=== PATIENT | female | born 1980 | race Two or more races ===

== ENCOUNTER 2019-10-12 06:28 | Emergency (ER) | payer BC ==
[2019-10-12] MEDS ORDERED: Ondansetron 4 MG/2 ML SDV IVPUSH ONE (07:01)
[2019-10-12] MEDS ORDERED: Sodium Chloride 0.9% 1,000 ML IV ONE ×2 (07:02→07:16)
[2019-10-12 07:08] LABS: BLOOD UREA NITROGEN,BUN 4 mg/dL (7.0-18.0); CARBON DIOXIDE,CO2 30.2 mmol/L (21.0-32.0); CHLORIDE,CL 102 mmol/L (98-107); GLUCOSE RANDOM 112 mg/dL (74-106); LIPASE 315 U/L (73-393); POTASSIUM,K 3.2 mmol/L (3.5-5.1); SODIUM,NA 144 mmol/L (136-145)
[2019-10-12] MEDS ORDERED: Pantoprazole 40 MG in Sodium Chloride 0.9% 20 ML IVPUSH ONE (07:17)
--- NOTE | 2019-10-12 07:30 | EDM.PDOC ---
ED HPI GENERAL MEDICAL PROBLEM - General Chief Complaint: Gastrointestinal Problem Stated Complaint: ABDOMINAL PAIN AN VOMITING BLOOD Time Seen by Provider: 10/12/19 07:20 Source of Information: Reports: Patient History Limitations: Reports: No Limitations - History of Present Illness INITIAL COMMENTS - FREE TEXT/NARRATIVE: This 39 year old female is admitted to the ED with a chief complaint of upper abdominal pain that she has been having over the past two months but became worse earlier this morning. She states that she threw up blood times two but not since she has been in the ED. She states that last night she had two glasses of white wine and two shots of Vodka. She denies any bloody or tarry stools. She denies any other symptoms including chest pain or SOB. She states that she had a similar episode one year ago after drinking alcohol. She states that she was told that she has elevated liver enzymes. Onset: Gradual Duration: Constant (to intermittent) Location: Reports: Abdomen (upper abdomen mainly on the right) Quality: Reports: Dull, Sharp Severity: Moderate Improves with: Reports: Immobilization Worsens with: Reports: None abdomen Pain Score (Numeric/FACES): 5 - Related Data Allergies Allergy/AdvReac Type Severity Reaction Status Date / Time No Known Allergies Allergy Verified 10/12/19 06:32 Home Meds: Home Meds Melatonin 1 mg PO BEDTIME 10/12/19 [History] Ondansetron HCl [Zofran] 4 mg PO TID 4 Days #12 tablet 10/12/19 [Rx] Pantoprazole Sodium [Protonix] 40 mg PO DAILY 30 Days #30 tablet. 10/12/19 [Rx ] Past Medical History HEENT History: Reports: None Cardiovascular History: Reports: None Respiratory History: Reports: None Gastrointestinal History: Reports: None Genitourinary History: Reports: None PROGRAM COORDINATOR History: Reports: None Musculoskeletal History: Reports: None Neurological History: Reports: None Psychiatric History: Reports: None Endocrine/Metabolic History: Reports: None Hematologic History: Reports: None Oncologic (Cancer) History: Reports: None Dermatologic History: Reports: None - Infectious Disease History Infectious Disease History: Reports: Chicken Pox - Past Surgical History Head Surgeries/Procedures: Reports: None Social & Family History - Family History Family Medical History: Noncontributory - Tobacco Use Smoking Status *Q: Never Smoker - Recreational Drug Use Recreational Drug Use: No ED ROS GENERAL - Review of Systems Review Of Systems: See Below Constitutional: Reports: No Symptoms HEENT: Reports: No Symptoms Respiratory: Reports: No Symptoms Cardiovascular: Reports: No Symptoms Endocrine: Reports: No Symptoms GI/Abdominal: Reports: Abdominal Pain, Hematochezia : Reports: No Symptoms Musculoskeletal: Reports: No Symptoms Skin: Reports: No Symptoms ED EXAM, GI/ABD - Physical Exam Exam: See Below Exam Limited By: No Limitations General Appearance: Alert, WD/WN, No Apparent Distress Ears: Normal External Exam, Normal Canal, Hearing Grossly Normal, Normal TMs Nose: Normal Inspection, Normal Mucosa, No Blood Throat/Mouth: Normal Inspection, Normal Lips, Normal Teeth, Normal Gums, Normal Oropharynx, Normal Voice, No Airway Compromise Head: Atraumatic, Normocephalic Neck: Normal Inspection, Supple, Non-Tender, Full Range of Motion Respiratory/Chest: No Respiratory Distress, Lungs Clear, Normal Breath Sounds, No Accessory Muscle Use, Chest Non-Tender Cardiovascular: Normal Peripheral Pulses, Regular Rate, Rhythm, No Edema, No Gallop, No JVD, No Murmur, No Rub GI/Abdominal Exam: Normal Bowel Sounds, Soft, No Distention, No Abnormal Bruit, No Mass, Tender (upper abdomen right greater than the left). No: Guarding, Rebound (Female) Exam: Deferred Rectal (Female) Exam: Deferred Back Exam: Normal Inspection Extremities: Normal Inspection, Normal Range of Motion, Normal Capillary Refill. No: Mauricio's Sign Neurological: Alert, Oriented, CN II-XII Intact, Normal Cognition, Normal Gait, Normal Reflexes, No Motor/Sensory Deficits Psychiatric: Normal Affect, Normal Mood Skin Exam: Warm, Dry, Intact, Normal Color, No Rash Lymphatic: No Adenopathy Course - Vital Signs Text/Narrative:: I discussed with the patient all of her diagnostic test and CT of the abdomen and pelvis. She has a fatty liver and elevated liver enzymes for which she is aware. She will be discharged. She agrees with the discharge plan. Last Recorded V/S: Last Vital Signs Temp 96.6 F L 10/12/19 06:33 Pulse 106 H 10/12/19 07:44 Resp 18 10/12/19 07:44 BP 139/100 H 10/12/19 07:44 Pulse Ox 97 10/12/19 07:44 - Orders/Labs/Meds Orders: Active Orders 24 hr Category Date Time Status EKG Documentation Completion [RC] STAT Care 10/12/19 06:44 Active Chest 1V Frontal [CR] Stat Exams 10/12/19 06:44 Taken Labs: Laboratory Tests 10/12/19 10/12/19 10/12/19 Range/Units 06:35 06:35 06:35 WBC 5.98 (4.0-11.0) K/uL RBC 4.41 (4.30-5.90) M/uL Hgb 15.3 (12.0-16.0) g/dL Hct 43.9 (36.0-46.0) % MCV 99.5 H (80.0-98.0) fL MCH 34.7 H (27.0-32.0) pg MCHC 34.9 (31.0-37.0) g/dL RDW Std Deviation 48.6 (28.0-62.0) fl RDW Coeff of Steve 13 (11.0-15.0) % Plt Count 193 (150-400) K/uL MPV 10.00 (7.40-12.00) fL Neut % (Auto) 30.8 L (48.0-80.0) % Lymph % (Auto) 52.5 H (16.0-40.0) % Cottle % (Auto) 13.7 (0.0-15.0) % Eos % (Auto) 2.3 (0.0-7.0) % Baso % (Auto) 0.7 (0.0-1.5) % Neut # (Auto) 1.8 (1.4-5.7) K/uL Lymph # (Auto) 3.1 H (0.6-2.4) K/uL Cottle # (Auto) 0.8 (0.0-0.8) K/uL Eos # (Auto) 0.1 (0.0-0.7) K/uL Baso # (Auto) 0.0 (0.0-0.1) K/uL Nucleated RBC % 0.0 /100WBC Nucleated RBCs # 0 K/uL INR 1.10 Sodium 144 (136-145) mmol/L Potassium 3.2 L (3.5-5.1) mmol/L Chloride 102 (98-107) mmol/L Carbon Dioxide 30.2 (21.0-32.0) mmol/L BUN 4 L (7.0-18.0) mg/dL Creatinine 0.9 (0.6-1.0) mg/dL Est Cr Clr Drug Dosing 71.03 mL/min Estimated GFR (MDRD) > 60.0 ml/min Glucose 112 H (74-106) mg/dL Calcium 9.2 (8.5-10.1) mg/dL Total Bilirubin 1.6 H (0.2-1.0) mg/dL AST 250 H (15-37) IU/L ALT 118 H (14-63) IU/L Alkaline Phosphatase 145 H (46-116) U/L Troponin I < 0.050 (0.000-0.056) ng/mL Total Protein 8.1 (6.4-8.2) g/dL Albumin 3.7 (3.4-5.0) g/dL Globulin 4.4 H (2.6-4.0) g/dL Albumin/Globulin Ratio 0.8 L (0.9-1.6) Lipase 315 (73-393) U/L Urine HCG, Qual (NEGATIVE) Blood Type Antibody Screen 10/12/19 10/12/19 Range/Units 07:18 08:17 WBC (4.0-11.0) K/uL RBC (4.30-5.90) M/uL Hgb (12.0-16.0) g/dL Hct (36.0-46.0) % MCV (80.0-98.0) fL MCH (27.0-32.0) pg MCHC (31.0-37.0) g/dL RDW Std Deviation (28.0-62.0) fl RDW Coeff of Steve (11.0-15.0) % Plt Count (150-400) K/uL MPV (7.40-12.00) fL Neut % (Auto) (48.0-80.0) % Lymph % (Auto) (16.0-40.0) % Cottle % (Auto) (0.0-15.0) % Eos % (Auto) (0.0-7.0) % Baso % (Auto) (0.0-1.5) % Neut # (Auto) (1.4-5.7) K/uL Lymph # (Auto) (0.6-2.4) K/uL Cottle # (Auto) (0.0-0.8) K/uL Eos # (Auto) (0.0-0.7) K/uL Baso # (Auto) (0.0-0.1) K/uL Nucleated RBC % /100WBC Nucleated RBCs # K/uL INR Sodium (136-145) mmol/L Potassium (3.5-5.1) mmol/L Chloride (98-107) mmol/L Carbon Dioxide (21.0-32.0) mmol/L BUN (7.0-18.0) mg/dL Creatinine (0.6-1.0) mg/dL Est Cr Clr Drug Dosing mL/min Estimated GFR (MDRD) ml/min Glucose (74-106) mg/dL Calcium (8.5-10.1) mg/dL Total Bilirubin (0.2-1.0) mg/dL AST (15-37) IU/L ALT (14-63) IU/L Alkaline Phosphatase (46-116) U/L Troponin I (0.000-0.056) ng/mL Total Protein (6.4-8.2) g/dL Albumin (3.4-5.0) g/dL Globulin (2.6-4.0) g/dL Albumin/Globulin Ratio (0.9-1.6) Lipase (73-393) U/L Urine HCG, Qual NEGATIVE (NEGATIVE) Blood Type A POSITIVE Antibody Screen NEGATIVE Meds: Medications Discontinued Medications Generic Name Dose Route Start Last Admin Trade Name Freq PRN Reason Stop Dose Admin Sodium Chloride 1,000 mls @ 1,000 mls/hr 10/12/19 07:02 10/12/19 07:41 Normal Saline IV 10/12/19 08:01 1,000 mls/hr .Bolus ONE Administration Pantoprazole Sodium 40 mg/ 20 mls @ 420 mls/hr 10/12/19 07:17 10/12/19 07:41 Sodium Chloride IVPUSH 10/12/19 07:19 420 mls/hr ONETIME ONE Administration Sodium Chloride 1,000 mls @ 1,000 mls/hr 10/12/19 07:16 10/12/19 07:42 Normal Saline IV 10/12/19 08:15 Not Given .Bolus ONE Ondansetron HCl 4 mg 10/12/19 07:01 10/12/19 07:41 Zofran IVPUSH 10/12/19 07:02 4 mg ONETIME ONE Administration Departure - Departure Time of Disposition: 11:32 Disposition: Home, Self-Care 01 Condition: Good Clinical Impression: Gastritis due to alcohol without hemorrhage Qualifiers: Chronicity: acute Qualified Code(s): K29.20 - Alcoholic gastritis without bleeding - Discharge Information *PRESCRIPTION DRUG MONITORING PROGRAM REVIEWED*: Yes *COPY OF PRESCRIPTION DRUG MONITORING REPORT IN PATIENT MAEHNDRA: Yes Instructions: Nausea and Vomiting, Adult, [id number] Referrals: PCP,None [Primary Care Provider] - Forms: ED Department Discharge Additional Instructions: Take all medications as directed. Follow up with your PCP in the next two to four days. Drink plenty of clear liquids for the next 24 hours and advance your diet as tolerated. Rest for the next 24 hours. Return to the ED if your condition gets worse or should you have any questions or concerns. The following information is given to patients seen in the emergency department who are being discharged to home. This information is to outline your options for follow-up care. We provide all patients seen in our emergency department with a follow-up referral. The need for follow-up, as well as the timing and circumstances, are variable depending upon the specifics of your emergency department visit. If you don't have a primary care physician on staff, we will provide you with a referral. We always advise you to contact your personal physician following an emergency department visit to inform them of the circumstance of the visit and for follow-up with them and/or the need for any referrals to a consulting specialist. The emergency department will also refer you to a specialist when appropriate. This referral assures that you have the opportunity for follow-up care with a specialist. All of these measure are taken in an effort to provide you with optimal care, which includes your follow-up. Under all circumstances we always encourage you to contact your private physician who remains a resource for coordinating your care. When calling for follow-up care, please make the office aware that this follow-up is from your recent emergency room visit. If for any reason you are refused follow-up, please contact the [facility] Emergency Department at and asked to speak to the emergency department charge nurse. Sepsis Event Note - Evaluation Sepsis Screening Result: No Definite Risk - Focused Exam Vital Signs: Vital Signs Temp Pulse Resp BP Pulse Ox 10/12/19 07:44 106 H 18 139/100 H 97 10/12/19 06:33 96.6 F L 135 H 20 141/106 H 98 Date Exam was Performed: 10/12/19 Time Exam was Performed: 11:29
--- NOTE | 2019-10-12 10:19 | CT ---
CT abdomen and pelvis Technique: Multiple axial sections were obtained from above the dome of the diaphragm inferiorly through the pubic symphysis. Intravenous and oral contrast not utilized. Comparison: No prior abdominal imaging. Findings: Partially visualized breast prosthesis are seen which appear symmetric between right and left sides. Visualized lung bases show nothing acute. Severe fatty infiltration is seen throughout the liver. Liver is also generous in size. Liver shows no other focal abnormality. Gallbladder contains no calcified gallstones. Spleen appears within normal limits. Adrenal glands show no nodule. Pancreas shows no discrete abnormality. Kidneys show no hydronephrosis or abnormal calcifications. No ureteral dilatation or ureteral stone is seen.. Aorta shows no aneurysm. No retroperitoneal adenopathy or mesenteric abnormalities are seen. Appendix is seen which is normal in size. No pelvic mass or adenopathy is seen. No free fluid or inflammatory change is appreciated within the abdomen or within the pelvis. Bone window settings were reviewed which shows mild scoliosis within the spine. No acute osseous finding is appreciated. Impression: 1. Severe fatty infiltration throughout the liver. Mild hepatomegaly also noted. 2. Nothing acute is appreciated on CT study of the abdomen and pelvis. Diagnostic code #2 This report was dictated in [place] Standard Time
--- NOTE | 2019-10-12 11:45 | CR ---
Chest: AP view of the chest was obtained. Comparison: No previous chest imaging. Heart size and mediastinum are normal. Lungs are clear with no acute parenchymal change. Bony structures are grossly intact. Impression: 1. Nothing acute is appreciated on AP chest x-ray. Diagnostic code #1 This report was dictated in MDT
== END 2019-10-12 12:37 | disposition home or self-care (01) ==
LOC: MW.ED 06:28
DX: K29.20 Alcoholic gastritis without bleeding (principal); Z79.899 Other long term (current) drug therapy
CPT/HCPCS: 36415; 71045; 74176; 80053; 81025; 83690; 84484; 85025; 85610; 86850; 86900; 86901; 93005; 96361; 96374; 96375; 99284; C9113; J2405; J7030